=== PATIENT | female | born 1965 | race Caucasian/White ===

== ENCOUNTER 2022-01-13 13:02 | Observation (INO) ==
[2022-01-13] MEDS ORDERED: Lorazepam PYXIS KEY PRN (13:07)
[2022-01-13] MEDS ORDERED: LORazepam 2 mg VIAL 1 ml IV PUSH ONE (13:07)
[2022-01-13] MEDS ORDERED: diazePAM INJ CARPUJECT 5 MG/ML SYRINGE IV ONE (13:28)
[2022-01-13] MEDS ORDERED: Iohexol 350 (CONTRAST) 500 ML MDV IV ONE (13:31)
[2022-01-13 13:46] LABS: ABS Basophils 0.1 10^3/ul (0-0.2); ABS Eosinophils 0.1 10^3/ul (0-0.6); ABS Lymphocytes 1.9 10^3/ul (1.0-4.8); ABS Monocytes 0.3 10^3/ul (0-0.8); Eosinophil % 1.8 %; Hematocrit 42 % (35-47); Lymphocyte % 35.8 %; Mean Corpuscular HGB Conc 34 g/dL (31-36); Mean Corpuscular Hemoglobin 31 pg (27-31); Mean Corpuscular Volume 91 fL (80-97); Mean Platelet Volume 8.4 fL (7.4-10.4); Nucleated Red Blood Cells % 0.1; Platelet Count 202 10^3/uL (150-450); Red Blood Count 4.57 10^6 /uL (3.70-4.87); Red Cell Distribution Width 13 % (10-15); White Blood Count 5.4 10^3/uL (3.5-10.8)
[2022-01-13 13:54] LABS: High Sens Troponin Baseline < 3 pg/mL (<15)
[2022-01-13] MEDS ORDERED: levETIRAcetam 1000MG IVPREMIX 1,000 MG/100 ML BAG IVPB ONE ×2 (14:01→14:02)
[2022-01-13 14:10] LABS: ALT 38 U/L (7-52); Albumin 4.6 g/dL (3.2-5.2); Albumin/Globulin Ratio 1.6 (1-3); Alcohol, S < 13 mg/dL (<13); Alkaline Phosphatase 81 U/L (35-149); Blood Urea Nitrogen 10 mg/dL (6-24); CO2 Carbon Dioxide 24 mmol/L (22-32); Calcium 9.6 mg/dL (8.6-10.3); Chloride 104 mmol/L (101-111); Globulin 2.9 g/dL (2-4); Glucose 130 mg/dL (70-100); Sodium 135 mmol/L (135-145); Total Protein 7.5 g/dL (6.4-8.9); eGFR CKD-EPI 95.3 (>60)
[2022-01-13 14:15] LABS: Anion Gap 7 mmol/L (2-11)
[2022-01-13 14:46] LABS: TSH Ultra Thyroid Stim Horm 2.01 mcIU/mL (0.34-5.60)
[2022-01-13 14:47] LABS: Free T3 4.8 pg/mL (2.5-3.9)
[2022-01-13 14:49] LABS: Free T4 0.89 ng/dL (0.61-1.12)
[2022-01-13 14:53] LABS: Urine Appearance Clear; Urine Bilirubin Negative (Negative); Urine Blood Negative (Negative); Urine Color Yellow; Urine Glucose Negative (Negative); Urine Ketones Negative (Negative); Urine Nitrite Negative (Negative); Urine Protein Negative (Negative); Urine Urobilinogen 0.2 (Negative) (Negative)
[2022-01-13 15:16] LABS: Activated Partial Thrombo Time 44.6 seconds (26.0-38.0)
[2022-01-13 15:24] LABS: High Sensitivity Troponin 1 Hr < 3 pg/mL (<15)
[2022-01-13 15:27] LABS: HDL Cholesterol 66.3 mg/dL
[2022-01-13 16:48] LABS: Potassium Redraw 3.9 mmol/L (3.5-5.0)
[2022-01-13 17:30] LABS: Thyroid Peroxidase Antibodies 412.52 IU/mL (<9)
[2022-01-13] MEDS ORDERED: diazePAM INJ CARPUJECT 5 MG/ML SYRINGE IV PRN (17:34)
[2022-01-13] MEDS: Enoxaparin 40 MG/0.4 ML SYR SUBCUT SCH (20:52)
[2022-01-14 06:09] LABS: Hematocrit 40 % (35-47); Hemoglobin 13.4 g/dL (12.0-16.0); Mean Corpuscular HGB Conc 34 g/dL (31-36); Mean Corpuscular Hemoglobin 31 pg (27-31); Mean Corpuscular Volume 92 fL (80-97); Mean Platelet Volume 8.3 fL (7.4-10.4); Platelet Count 196 10^3/uL (150-450); Red Cell Distribution Width 14 % (10-15); White Blood Count 4.9 10^3/uL (3.5-10.8)
[2022-01-14 06:31] LABS: Anion Gap 6 mmol/L (2-11); Blood Urea Nitrogen 13 mg/dL (6-24); CO2 Carbon Dioxide 25 mmol/L (22-32); Calcium 9.2 mg/dL (8.6-10.3); Chloride 108 mmol/L (101-111); Cholesterol 231 mg/dL; Glucose 96 mg/dL (70-100); HDL Cholesterol 62.3 mg/dL; LDL Cholesterol 149 mg/dL; Potassium 4.1 mmol/L (3.5-5.0); Sodium 139 mmol/L (135-145); Triglycerides 98 mg/dL; eGFR CKD-EPI 98.5 (>60)
[2022-01-14] MEDS: Cholecalciferol (VIT D3) 1,000 unit TAB PO SCH (08:15)
[2022-01-14] MEDS ORDERED: Ondansetron 4 mg VIAL 2 MG/ML 2 ml VIAL IV PRN (11:53)
[2022-01-14 17:00] LABS: C Reactive Protein < 1.00 mg/L (<8.01)
[2022-01-14] MEDS ORDERED: Gadoteridol (CONTRAST) 279.3 MG/ML 10 ML IV ONE (17:31)
[2022-01-14] MEDS: Enoxaparin 40 MG/0.4 ML SYR SUBCUT SCH (20:59)
[2022-01-15 06:03] LABS: ABS Eosinophils 0.1 10^3/ul (0-0.6); ABS Lymphocytes 2.2 10^3/ul (1.0-4.8); ABS Monocytes 0.4 10^3/ul (0-0.8); ABS Neutrophils 2.8 10^3/ul (1.5-7.7); Eosinophil % 2.6 %; Hematocrit 39 % (35-47); Hemoglobin 13.8 g/dL (12.0-16.0); Lymphocyte % 39.1 %; Mean Corpuscular HGB Conc 35 g/dL (31-36); Mean Corpuscular Hemoglobin 32 pg (27-31); Mean Corpuscular Volume 92 fL (80-97); Mean Platelet Volume 8.4 fL (7.4-10.4); Platelet Count 200 10^3/uL (150-450); Red Blood Count 4.27 10^6 /uL (3.70-4.87); Red Cell Distribution Width 13 % (10-15); White Blood Count 5.5 10^3/uL (3.5-10.8)
[2022-01-15 06:20] LABS: Potassium 4.2 mmol/L (3.5-5.0)
[2022-01-15 06:21] LABS: Calcium 9.4 mg/dL (8.6-10.3); eGFR CKD-EPI 82.9 (>60)
[2022-01-15] MEDS: Cholecalciferol (VIT D3) 1,000 unit TAB PO SCH (09:49)
[2022-01-15] MEDS ORDERED: Nystatin TOP POWDER 15 GM BTL TOPICAL SCH (11:30)
[2022-01-15 14:07] LABS: Body Fluid Source Cerebral Spinal
[2022-01-15 14:12] LABS: CSF Glucose 68 mg/dL (40-70)
[2022-01-15 14:13] LABS: Body Fluid Appearance Clear; Body Fluid Color Colorless; CSF Tube # 4
[2022-01-15 14:52] LABS: Body Fluid WBC 2 /mcL
[2022-01-15 16:00] LABS: Body Fluid Total Cells Counted 5
[2022-01-15 16:35] VITALS: BP 113/82
[2022-01-23 17:18] LABS: Anti-Glial/Neuronal Nuc Ab-1 A Negative titer (<1:240); Anti-Neuronal Nuclear Ab Type1 Negative titer (<1:240); Anti-Neuronal Nuclear Ab Type2 Negative titer (<1:240); Anti-Neuronal Nuclear Ab Type3 Negative titer (<1:240); CRMP-5 IgG Antibody Negative titer (<1:240); Purkinje Cell Cytoplasm Typ Tr Negative titer (<1:240); Purkinje Cell Cytoplasm Type 1 Negative titer (<1:240); Purkinje Cell Cytoplasm Type 2 Negative titer (<1:240)
== END 2022-01-15 16:00 | disposition home or self-care (01) ==
LOC: ED 13:02 → EDHOLD 13:02 → MEDTELE 20:25
PROVIDERS: ADMIT Internal Medicine; ATTEND Internal Medicine